=== PATIENT | female | born 1995 | race Caucasian/White ===

== ENCOUNTER 2022-09-16 15:17 | Emergency (ER) | payer OTHER ==
[~2022-09-16] VITALS: Ht 170.2 cm; Wt 63.5 kg
--- NOTE | 2022-09-16 15:45 | NUR ---
Pt with c/o panic attac/anxiety. Seen by Dr. Thomas for MSE.
--- NOTE | 2022-09-16 16:20 | NUR ---
Patient discharged to home in stable condition. Written and verbal after care instructions given. Patient verbalizes understanding of instructions. Stressed follow up or return to ER for worsening s/s.
[2022-09-16 16:34] VITALS: BP 129/78
== END 2022-09-16 16:20 | disposition home or self-care (01) ==
LOC: ER 15:17
DX: F41.9 Anxiety disorder, unspecified (principal)
CPT/HCPCS: A4663